=== PATIENT | female | born 1975 | race African-American/Black ===

== ENCOUNTER 2018-02-23 10:38 | Inpatient (IN) | payer OTHER ==
[2018-02-23 11:04] VITALS: BMI 28.0
--- NOTE | 2018-02-23 11:57 | HP ---
CIWA Score Nausea/Vomitin Muscle Tremors: 2 Anxiety: 2 Agitation: 2 Paroxysmal Sweats: 1-Minimal Palms Moist Orientation: 0-Oriented Tacttile Disturbances: 1-Very Mild Itch/Numbness Auditory Disturbances: 0-None Visual Disturbances: 1-Very Mild Sensitivity Headache: 2-Mild CIWA-Ar Total Score: 13 - Admission Criteria [facility] Guidelines: Admission for Medically Managed Detox: Requires at least one of the followin. CIWA greater than 12 2. Seizures within the past 24 hours 3. Delirium tremens within the past 24 hours 4. Hallucinations within the past 24 hours 5. Acute intervention needed for co occurring medical disorder 6. Acute intervention needed for co occurring psychiatric disorder 7. Severe withdrawal that cannot be handled at a lower level of care (continued vomiting, continued diarrhea, abnormal vital signs) requiring intravenous medication and/or fluids 8. Patient presents the following: CIWA greater than 12 Admission Criteria Met: Admission criteria met Admission ROS [facility] - HPI Chief Complaint: i need help to stop drinking alcohol,cocaine,marijuana,heroin abused Allergies/Adverse Reactions: Allergies Allergy/AdvReac Type Severity Reaction Status Date / Time Penicillins Allergy Verified 02/23/18 12:33 History of Present Illness: this 43 years old female with alcohol,cocaine,marijuana dependence,heroin abused ,seeking detox,last treatment in 2008 [facility] syncope alcohol related nicotine dependence history of hypertension,type2 dm,asthma,gerd bipolar disorder longest period of sobriety 3 years plan for rehab after detox tonsillectomy at age 5 years - Ebola screening Have you traveled outside of the country in the last 21 days: No Have you had contact with anyone from an Ebola affected area: No Have you been sick,other than usual withdrawal symptoms: No Do you have a fever: No - Review of Systems Constitutional: Loss of Appetite, Malaise, Night Sweats, Changes in sleep, Weakness EENT: reports: Nose Congestion Respiratory: reports: No Symptoms reported, Other (asthma) Cardiac: reports: No Symptoms Reported GI: reports: Nausea, Indigestion, Abdominal cramping : reports: No Symptoms Reported Musculoskeletal: reports: Back Pain, Muscle Pain Integumentary: reports: Dryness Neuro: reports: Headache, Tremors Endocrine: reports: No Symptoms Reported, Other (history of asthma) Hematology: reports: No Symptoms Reported Psychiatric: reports: No Sypmtoms Reported, Judgement Intact, Mood/Affect Appropiate, Orientated x3, other (bipolar disorder and insomnia) Patient History - Patient Medical History Hx Anemia: No Hx Asthma: Yes (on albuterol inhaled) Hx Chronic Obstructive Pulmonary Disease (COPD): No Hx Cancer: No Hx Cardiac Disorders: No Hx Congestive Heart Failure: No Hx Hypertension: Yes (on med) Hx Hypercholesterolemia: Yes (no med) Hx Pacemaker: No HX Cerebrovascular Accident: No Hx Seizures: No Hx Dementia: No Hx Diabetes: Yes (type 2 dm) Hx Gastrointestinal Disorders: Yes (gerd) Hx Liver Disease: No Hx Genitourinary Disorders: No Hx Sexually Transmitted Disorders: No Hx Renal Disease (ESRD): No Hx Thyroid Disease: No Hx Human Immunodeficiency Virus (HIV): No (last 12/06 negative ) Hx Hepatitis C: No Hx Depression: No Hx Suicide Attempt: Yes (05/08 jump infront of the bus) Hx Bipolar Disorder: Yes (non compliance) Hx Schizophrenia: No Other Medical History: no suicidal,no homicidal - Patient Surgical History Past Surgical History: No - PPD History Previous Implant?: Yes Documented Results: Negative w/o proof Implanted On Prior [facility] Admission?: No PPD to be Administered?: Yes - Reproductive History Patient is a Female of Child Bearing Age (11 -55 yrs old): Yes Last Menstrual Period: 02/13/18 Patient : No - Smoking Cessation Smoking history: Current every day smoker Have you smoked in the past 12 months: Yes Aproximately how many cigarettes per day: 20 Cigars Per Day: 0 Hx Chewing Tobacco Use: No Initiated information on smoking cessation: Yes 'Breaking Loose' booklet given: 02/23/18 - Substance & Tx. History Hx Alcohol Use: Yes Hx Substance Use: Yes Substance Use Type: Alcohol, Cocaine, Heroin, Marijuana Hx Substance Use Treatment: Yes (2008) - Substances Abused Alcohol Route: Oral Frequency: Daily Amount used: 1 pint of vodka Age of first use: 14 Date of Last Use: 02/22/18 Cocaine Route: Smoking Frequency: Daily Amount used: 200$ Age of first use: 16 Date of Last Use: 02/21/18 Marijuana/Hashish Route: Smoking Frequency: 3-6 times per week Amount used: 10$ Age of first use: 14 Date of Last Use: 02/21/18 Heroin Route: Inhalation Frequency: 1-3 times last 30 days Amount used: 1/2 bag Age of first use: 25 Date of Last Use: 02/19/18 Family Disease History - Family Disease History Family Disease History: Other: Mother (desmond yanez) Admission Physical Exam [facility] - Vital Signs Vital Signs: Vital Signs - 24 hr 02/23/18 11:02 Temperature 96.7 F L Pulse Rate 82 Respiratory 18 Rate Blood Pressure 153/94 - Physical General Appearance: Yes: Moderate Distress, Tremorous, Irritable, Sweating, Anxious HEENTM: Yes: Normal ENT Inspection, JUAN RAMON, Pharynx Normal Respiratory: Yes: Within Normal Limits, Lungs Clear, Normal Breath Sounds Neck: Yes: Within Normal Limits, Supple, Trachea in good position Breast: Yes: Breast Exam Deferred Cardiology: Yes: Regular Rhythm, Regular Rate, S1, S2 Abdominal: Yes: Within Normal Limits, Normal Bowel Sounds, Non Tender, Flat, Soft Genitourinary: Yes: Within Normal Limits Back: Yes: Muscle Spasm Musculoskeletal: Yes: Back pain, Joint Stiffness, Muscle Pain Extremities: Yes: Tremors Neurological: Yes: Within Normal Limits, admission discharge rn II-XII NML intact, Fully Oriented, Alert, Motor Strength 5/5 Integumentary: Yes: Dry Lymphatic: Yes: Within Normal Limits - Diagnostic (1) Alcohol dependence with uncomplicated withdrawal Status: Acute (2) Cocaine dependence Status: Acute (3) Cannabis dependence Status: Acute (4) Heroin abuse Status: Acute (5) Essential hypertension Status: Acute (6) DM2 (diabetes mellitus, type 2) Status: Acute (7) GERD (gastroesophageal reflux disease) Status: Acute (8) Bipolar disorder Status: Acute Cleared for Admission [facility] - Detox or Rehab [facility] Level of Care: Medically Managed Detox Regimen/Protocol: Librium [facility] Breath Alcohol Content Breath Alcohol Content: 0 Urine Pregancy Test - Result Urine Test Results: Negative- NO Line Present Urine Drug Screen - Results Drug Screen Negative: No Urine Drug Screen Results: SIRI-Cocaine
[2018-02-23] MEDS ORDERED: hydrOXYzine PAMOATE 50 MG CAPSULE (FP) PO PRN (12:22)
[2018-02-23] MEDS ORDERED: P-EPHED 60MG/TRIPROLIDI 2.5MG TABLET PO PRN (12:22)
[2018-02-23] MEDS ORDERED: MAGNESIUM HYDROX 2400MG/30ML ORAL SUSPENSION 30 ML CUP PO PRN (12:22)
[2018-02-23] MEDS ORDERED: NICOTINE POLACRILEX 2 MG GUM BC PRN (12:22)
[2018-02-23] MEDS ORDERED: MAG HYDROX/AL HYDROX/SIMETH 30 ML UNIT-DOSE CUP PO PRN (12:22)
[2018-02-23] MEDS ORDERED: ACETAMINOPHEN 325 MG TABLET (FP) PO PRN (12:22)
[2018-02-23] MEDS ORDERED: IBUPROFEN 400 MG TABLET (FP) PO PRN (12:22)
[2018-02-23] MEDS ORDERED: LOPERAMIDE HCL 2 MG CAPSULE PO PRN (12:22)
[2018-02-23] MEDS ORDERED: MENTHOL/PHENOL 1 EACH UD MM PRN (12:22)
[2018-02-23] MEDS ORDERED: chlordiazePOXIDE HCL 25 MG CAPSULE PO PRN (12:22)
[2018-02-23] MEDS ORDERED: MAGNESIUM CITRATE 300 ML BOTTLE PO PRN (12:22)
[2018-02-23] MEDS ORDERED: guaiFENesin/D-METHORPHAN HB 10 ML UNIT-DOSE CUPS PO PRN (12:22)
[2018-02-23] MEDS ORDERED: ALBUTEROL SO4 8 GM HFA INHALER IH PRN (13:15)
--- NOTE | 2018-02-23 14:48 | CONSULT ---
[facility] Psychiatric Consult - Data Date of interview: 02/23/18 Admission source: [facility] Identifying data: this 43 years old female with alcohol,cocaine,marijuana dependence,heroin abused,seeking detox,last treatment in 2008 [facility]. syncope alcohol related. nicotine dependence. history of hypertension,type2 dm,asthma, gerd. bipolar disorder. longest period of sobriety 3 years. plan for rehab after detox. tonsillectomy at age 5 years Substance Abuse History: - Smoking Cessation. Have you smoked in the past 12 months: Yes. Aproximately how many cigarettes per day: 20. Cigars Per Day: 0. Hx Chewing Tobacco Use: No. Initiated information on smoking cessation: Yes. 'Breaking Loose' booklet given: 02/23/18. - Substance & Tx. History. Hx Alcohol Use: Yes. Hx Substance Use: Yes. Substance Use Type: Alcohol, Cocaine , Heroin, Marijuana. Hx Substance Use Treatment: Yes ([facility] 2008). - Substances Abused. Alcohol. Route: Oral. Frequency: Daily. Amount used: 1 pint of vodka. Age of first use: 14. Date of Last Use: 02/22/18. Cocaine. Route: Smoking. Frequency: Daily. Amount used: 200$. Age of first use: 16. Date of Last Use: 02/21/18. Marijuana/Hashish. Route: Smoking. Frequency: 3-6 times per week. Amount used: 10$. Age of first use: 14. Date of Last Use: 02/21/18. Heroin. Route: Inhalation. Frequency: 1-3 times last 30 days. Amount used: 1/2 bag. Age of first use: 25. Date of Last Use: 02/19/18 Medical History: DM-II, GERD, HTN, Psychiatric History: Patient reports history of Bipolar Disorder, psychiatric hospitalization history, reports history of suicidal attempt, patient was truimg to [place] [email or web address] on 04/2017, patient reports no suicidal, homicidal iderations this time. Patient reports taking priopr to admission: Abilify 5mg poqd. Lexapro 10mg poqd. Trazodone 100mg po qhs Physical/Sexual Abuse/Trauma History: Denies Additional Comment: Abilify 5mg poqd. Lexapro 10mg poqd. Trazodone 100mg po qhs Mental Status Exam - Mental Status Exam Alert and Oriented to: Person Cognitive Function: Fair Patient Appearance: Unkempt Mood: Anxious Affect: Labile Patient Behavior: Talkative, Cooperative Speech Pattern: Appropriate Voice Loudness: Normal Thought Process: Goal Oriented Thought Disorder: Being Controlled Hallucinations: Denies Suicidal Ideation: Denies Homicidal Ideation: Denies Insight/Judgement: Fair Sleep: Difficulty falling asleep Appetite: Weight gain Muscle strength/Tone: Normal Gait/Station: Normal Additional Comments: Abilify 5mg poqd. Lexapro 10mg poqd. Trazodone 100mg po qhs Psychiatric Findings - Problem List ([place] 1, 2,3) (1) Alcohol dependence with uncomplicated withdrawal Current Visit: Yes Status: Acute (2) Bipolar disorder Current Visit: Yes Status: Acute (3) Cannabis dependence Current Visit: Yes Status: Acute (4) Cocaine dependence Current Visit: Yes Status: Acute (5) DM2 (diabetes mellitus, type 2) Current Visit: Yes Status: Acute (6) Essential hypertension Current Visit: Yes Status: Acute (7) GERD (gastroesophageal reflux disease) Current Visit: Yes Status: Acute (8) Heroin abuse Current Visit: Yes Status: Acute - Initial Treatment Plan Initial Treatment Plan: Abilify 5mg poqd. Lexapro 10mg poqd. Trazodone 100mg po qhs
[2018-02-23] MEDS: NICOTINE 21 MG/24 HOURS TOPICAL PATCH TD SCH (16:15)
[2018-02-23] MEDS: chlordiazePOXIDE HCL 25 MG CAPSULE PO SCH ×2 (17:56→22:33)
[2018-02-23 18:10] LABS: URINE APPEARANCE CLEAR; URINE BILIRUBIN NEGATIVE (<2.0 mg/dL); URINE COLOR LTYELLOW; URINE GLUCOSE (UA) NEGATIVE (NEGATIVE); URINE KETONE NEGATIVE (NEGATIVE); URINE LEUK ESTERASE NEGATIVE (NEGATIVE); URINE NITRITE NEGATIVE (NEGATIVE); URINE PROTEIN NEGATIVE (NEGATIVE); URINE UROBILINOGEN NEGATIVE mg/dL (0.2-1.0)
[2018-02-23] MEDS ORDERED: traZODone HCL 100 MG TABLET (FP) PO SCH (22:00)
[2018-02-23] MEDS ORDERED: MELATONIN 5 MG TABLETS PO PRN (22:00)
[2018-02-23] MEDS ORDERED: THIAMINE HCL 100 MG TABLET (FP) PO SCH (22:00)
[2018-02-23] MEDS: RANITIDINE HCL 150 MG TABLET (FP) PO SCH (22:33)
[2018-02-23] MEDS: NAPROXEN 500 MG TABLET (FP) PO SCH (22:34)
[2018-02-23] MEDS: BUDESONIDE/FORMETEROL FUMARATE 80/4.5 mcg INHALER IH SCH (22:40)
[2018-02-24] MEDS: chlordiazePOXIDE HCL 25 MG CAPSULE PO SCH ×2 (05:36→10:41)
[2018-02-24 06:44] VITALS: BP 133/64; PULSE 88; TEMP 97.7
[2018-02-24] MEDS ORDERED: metFORMIN HCL 500 MG TABLET (FP) PO SCH (07:00)
[2018-02-24] MEDS ORDERED: PRENATAL VITAMINS W/ FOLIC ACID TABLET (FP) PO SCH (10:00)
[2018-02-24] MEDS ORDERED: ESCITALOPRAM OXALATE 10 MG TABLET (FP) PO SCH (10:00)
[2018-02-24] MEDS ORDERED: ASPIRIN COATED 81 MG TABLET.EC PO SCH (10:00)
[2018-02-24] MEDS ORDERED: ARIPiprazole 5 MG TABLET (FP) PO SCH (10:00)
[2018-02-24] MEDS ORDERED: NIFEdipine E.R 60 MG TABLET (UD) PO SCH (10:00)
[2018-02-24] MEDS: NAPROXEN 500 MG TABLET (FP) PO SCH (10:39)
[2018-02-24] MEDS: NICOTINE 21 MG/24 HOURS TOPICAL PATCH TD SCH (10:40)
[2018-02-24] MEDS: RANITIDINE HCL 150 MG TABLET (FP) PO SCH (10:40)
[2018-02-24 10:41] LABS: HEMATOCRIT 34.9 % (32.4-45.2); HEMOGLOBIN 11.7 GM/dL (10.7-15.3); MCH 24.5 pg (25.7-33.7); MCHC 33.6 g/dl (32.0-36.0); MEAN PLT VOLUME 9.1 fl (7.5-11.1); PLATELET COUNT 387 K/MM3 (134-434); RBC 4.78 M/mm3 (3.60-5.2); RDW 17.6 % (11.6-15.6); WHITE BLOOD COUNT 13.8 K/mm3 (4.0-10.0)
[2018-02-24] MEDS: BUDESONIDE/FORMETEROL FUMARATE 80/4.5 mcg INHALER IH SCH (10:41)
[2018-02-24 11:33] LABS: ALBUMIN 3.4 g/dl (3.4-5.0); ALK PHOS 92 U/L (45-117); ANION GAP 9 MMOL/L (8-16); BILIRUBIN,TOTAL 0.2 mg/dL (0.2-1); BLOOD UREA NITROGEN 22 mg/dL (7-18); CHLORIDE 106 mmol/L (98-107); CO2 25 mmol/L (21-32); GLUCOSE,RANDOM 90 mg/dL (74-106); POTASSIUM 4.2 mmol/L (3.5-5.1); SGOT/AST 14 U/L (15-37); SGPT/ALT 28 U/L (13-61); SODIUM 141 mmol/L (136-145); TOT PROT 7.1 g/dl (6.4-8.2)
--- NOTE | 2018-02-24 11:38 | EKG ---
Test Reason : Blood Pressure : / mmHG Vent. Rate : 088 BPM Atrial Rate : 088 BPM P-R Int : 124 ms QRS Dur : 090 ms QT Int : 368 ms P-R-T Axes : 058 042 056 degrees QTc Int : 445 ms NORMAL SINUS RHYTHM NORMAL ECG NO PREVIOUS ECGS AVAILABLE Confirmed by DEEPAK ROMERO, EDDA ([id number]) on 02/24/2018 11:38:23 AM Referred By: Confirmed By:EDDA SOTELO MD
--- NOTE | 2018-02-24 12:58 | PN ---
S Progress Note Note: pt states she is feeling better and refused to take any more librium and is going back to her program. No s/s of any withdrawals noted. pt signed out AMA.
--- NOTE | 2018-02-24 13:01 | DS ---
[facility] Detox Discharge Summary Admission Date: 02/23/18 - History Present History: Alcohol Dependence, Cannabis Dependence, Cocaine Dependence - Physical Exam Results Vital Signs: Vital Signs Temperature 97.7 F 02/24/18 06:00 Pulse Rate 88 02/24/18 06:00 Respiratory Rate 18 02/24/18 06:00 Blood Pressure 133/64 02/24/18 06:00 O2 Sat by Pulse Oximetry (%) - Treatment Hospital Course: Discharged Condition Good - Medication Discharge Medications: Ambulatory Orders Albuterol Sulfate Inhaler - [Ventolin Hfa Inhaler -] 2 inh PO Q4H PRN 02/23/18 Aspirin [Aspirin EC] 81 mg PO DAILY 02/23/18 Budesonide/Formeterol Fumarate [SYMBICORT 80/4.5mcg -] 1 inh PO BID 02/23/18 Metformin HCl [Glucophage] 500 mg PO DAILY 02/23/18 Naproxen [Naprosyn -] 500 mg PO BID 02/23/18 Nifedipine [Adalat cc] 60 mg PO DAILY 02/23/18 Omeprazole 20 mg PO DAILY 02/23/18 Ranitidine HCl [Zantac] 150 mg PO BID 02/23/18 traZODone HCL [Trazodone HCl] 100 mg PO HS 02/23/18 - AMA Did Patient Leave Against Medical Advice: Yes (going home)
[2018-02-24] MEDS ORDERED: chlordiazePOXIDE HCL 25 MG CAPSULE PO SCH (17:00)
[2018-02-25] MEDS ORDERED: chlordiazePOXIDE 5 MG CAPSULE PO SCH (17:00)
[2018-02-26] MEDS ORDERED: chlordiazePOXIDE HCL 10 MG CAPSULE PO SCH (17:00)
== END 2018-02-24 11:18 | disposition left against medical advice (07) | DRG 770 ==
LOC: YASAS 10:38 → Y6N 13:49
PROC: HZ2ZZZZ Detoxification Services for Substance Abuse Treatment (ICD-10-PCS; principal; 2018-02-23)
DX: F10.230 Alcohol dependence with withdrawal, uncomplicated (principal); F14.20 Cocaine dependence, uncomplicated; F12.20 Cannabis dependence, uncomplicated; F11.10 Opioid abuse, uncomplicated; E78.00 Pure hypercholesterolemia, unspecified; I10 Essential (primary) hypertension; E11.9 Type 2 diabetes mellitus without complications; K21.9 Gastro-esophageal reflux disease without esophagitis; J45.909 Unspecified asthma, uncomplicated; Z91.5 Personal history of self-harm; Z88.0 Allergy status to penicillin; Z79.84 Long term (current) use of oral hypoglycemic drugs
CPT/HCPCS: 36415; 80053; 81003; 82962; 85027; 86593; 87389; 93005; 93010